=== PATIENT | female | born 1945 | race Caucasian/White ===

== ENCOUNTER 2025-08-08 14:41 | Emergency (ER) | payer OTHER, SELFPAY ==
[2025-08-08 14:53] VITALS: BP 195/94; PULSE 82; RESP 18; TEMP 36.4; O2SAT 100; BMI 26.3
--- NOTE | 2025-08-08 15:20 | ED.FEMALEGU ---
HPI - Female Genitourinary General Chief complaint: Urogenital-Female Stated complaint: Possible Bladder infesction Time Seen by Provider: 08/08/25 14:55 Source: patient Mode of arrival: Ambulatory History of Present Illness HPI Narrative: Ms. Bernard is a very pleasant 79-year-old female with no reported past medical history, prior hysterectomy who presents to the emergency department for concern of urinary tract infection x2 days. Patient states that she has been noticing more urinary frequency and urgency. This morning she noticed that she did have slight blood-tinged urine. She is not experiencing significant pain. Reports that she has had mild right flank pain after an injury but otherwise no new pain in her flanks, no abdominal pain, vomiting, diarrhea, constipation, fevers, chills or flu-like symptoms. Denies a history of ever having UTI in the past. No antibiotic allergies. Related Data Previous Rx's ?Medication ?Instructions ?Recorded sulfamethoxazole 800 1 tab PO BID 5 days #10 tabs 08/08/25 mg-trimethoprim 160 mg tablet (Bactrim DS) Allergies Allergy/AdvReac Type Severity Reaction Status Date / Time No Known Drug Allergies Allergy Verified 08/08/25 14:55 Review of Systems Review of Systems ROS Unobtainable: All systems reviewed & are unremarkable except as noted in HPI and below Exam Narrative Exam Narrative: GENERAL: 79 year old patient appears stated age. Well-developed patient, in no acute distress. HEAD: Atraumatic. Normocephalic. NECK: Trachea midline. Cervical ROM intact. CARDIOVASCULAR: Regular rate RESPIRATORY: ?Nonlabored respirations. ?Speaking in clear, full sentences. GASTROINTESTINAL: Abdomen soft, non-tender, nondistended. Bs present. BACK: No CVA tenderness. NEURO: AOx3. ?Clear speech. ?Moves all 4 extremities appropriately. SKIN: No rash or erythema of visible areas Initial Vital Signs Initial Vital Signs: Vital Signs Temperature 97.6 F 08/08/25 14:53 Pulse Rate 82 08/08/25 14:53 Respiratory Rate 18 08/08/25 14:53 Blood Pressure 195/94 H 08/08/25 14:53 Pulse Oximetry 100 08/08/25 14:53 Oxygen Delivery Method Room Air 08/08/25 14:53 Course Orders Ordered: Discontinued Medications Nitrofurantoin Macrocrystals (Nitrofurantoin Er 100 Mg Capsule) 100 mg PO NOW ONE Stop: 08/08/25 16:37 Last Admin: 08/08/25 16:49 Dose: 100 mg Documented By: MARKY Vital Signs Vital signs: Vital Signs - 8 hr 08/08/25 14:53 08/08/25 16:55 08/08/25 17:01 Temperature 97.6 F 98.3 F Pulse Rate 82 92 H Respiratory Rate 18 16 Blood Pressure 195/94 H 164/91 H Pulse Oximetry 100 98 Oxygen Delivery Method Room Air Room Air Room Air MDM - Female Genitourinary Lab Data Labs: Lab Results 08/08/25 Range/Units 16:20 Urine Color [place] Urine Appearance Sl cloudy Urine pH 6.5 (4.5-8.0) Ur Specific [place] <=1.005 (1.000-1.035) Urine Protein 1+ H (Negative) Urine Glucose (UA) Negative (Negative) g/dL Urine Ketones Negative (NEGATIVE) Urine Occult Blood 3+ H (Negative) Urine Nitrate Negative (Negative) Urine Bilirubin Negative (NEGATIVE) Urine Urobilinogen 0.2 (0.2) E.U./dL Ur Leukocyte Esterase 1+ H (NEGATIVE) Urine RBC 10-30/hpf H (0-5/HPF) Urine WBC 30-100/hpf H (0-5/HPF) Ur Squamous Epith Cells 0-1 /hpf (0-5/HPF) Urine Bacteria Many (>30) H (None) Ur Culture Indicated? Specimen cultured Vol Urine Centrifuged 10ml (spun) MDM Narrative Medical decision making narrative: 79-year-old female with no reported past medical history, prior hysterectomy who presents to the emergency department for concern of urinary tract infection x2 days. Differential diagnosis includes but isn't limited to urethritis, cystitis, nephrolithiasis, etc. On exam patient is in no acute distress, nontoxic appearing, vital signs appropriate except for mildly elevated blood pressure. She is here for 2 days of urinary frequency, urgency and slight hematuria today. She is not having abdominal pain or significant flank pain. We will obtain urinalysis and determine further workup based on that. Urinalysis consistent with infection, 30-100 WBC present, many bacteria present, 10-30 RBCs present. We will treat patient with nitrofurantoin. First dose of Macrobid given in the ED, however after further discussion of mechanism of action of nitrofurantoin, patient is interested in a different antibiotic, we will prescribe Bactrim b.i.d. x5 days. Discussed increase fluids, rest, antibiotic use, strict ER return precautions and follow up with the PCP. Patient verbalized understanding of all information agreeable with the plan. She is stable for discharge home. Discharge Plan Departure Patient Disposition: Home Clinical Impression: Urinary tract infection Qualifiers: Urinary tract infection type: site unspecified Hematuria presence: with hematuria Qualified Code(s): N39.0 - Urinary tract infection, site not specified Instructions: DI for Urinary Tract Infection (UTI) Activity Restrictions/Additional Instructions: Dear Ms. Bernard, Thank you for coming to the emergency department. Today you were evaluated for concern of a possible bladder infection. Your urinalysis today did reveal that you do have a urinary tract infection. Please complete the full course of provided antibiotics. Please make sure you are drinking plenty of water and urinating frequently/avoiding holding your bladder. You will be called in about 3 days if your urine culture requires any change to your antibiotics. Please return to the emergency department if you develop severe pain, inability to urinate, fevers or any other concerns. Your antibiotic has been sent to [facility] in [place] Please follow up with your primary care doctor within the next 2-3 days for ER follow-up. (If you do not have a PCP you can call [phone]. ?to schedule an appointment with an [facility] Primary Care Provider) IF YOU DEVELOP ANY NEW OR WORSENING SYMPTOMS, RETURN TO THE ER! Please read the attached instructions, they highlight more specific treatments and interventions for you at home. Thank you for letting me participate in your care, Velma Milton PA-C Prescriptions: New sulfamethoxazole-trimethoprim [Bactrim DS] 800-160 mg tablet 1 tab PO BID 5 Days Qty: 10 0RF Stand Alone Forms: Patient Portal/API
[2025-08-08 16:34] LABS: Appearance Urine UA SL CLOUDY; Bilirubin Urine UA NEGATIVE (NEGATIVE); Glucose Urine UA NEGATIVE (Negative); Ketones Urine UA NEGATIVE (NEGATIVE); Leukocyte Esterase Urine UA 1+ (NEGATIVE); Nitrite Urine UA NEGATIVE (Negative); Occult Blood Urine UA 3+ (Negative); Protein Urine UA 1+ (Negative); Specific Gravity Urine UA <=1.005 (1.000-1.035); Urobilinogen Urine UA 0.2 E.U./dL (0.2)
[2025-08-08 16:35] LABS: Color Urine UA PINK; Culture Indicated Urine Specimen Cultured; pH Urine UA 6.5 (4.5-8.0)
[2025-08-08] MEDS: NITROFURANTOIN ER 100 MG CAPSULE PO (16:49)
[2025-08-08 16:55] VITALS: BP 164/91; PULSE 92; RESP 16; TEMP 36.8; O2SAT 98
== END 2025-08-08 17:01 | disposition home or self-care (01) ==
PROVIDERS: Student in an Organized Health Care Education/Training Program; Emergency Provider Physician Assistant
DX: N39.0 Urinary tract infection, site not specified (principal)
CPT/HCPCS: 81001; 87077; 87086; 87186; 99283